=== PATIENT | male | born 1980 | race Caucasian/White ===

== ENCOUNTER 2023-01-03 10:13 | Outpatient (CLI) | payer OTHER | END 2023-01-03 10:14 | disposition home or self-care (01) | LOC: CSHCT 10:13 | PROVIDERS: ATTEND Surgery | DX: S12.9XXD Fracture of neck, unspecified, subsequent encounter (principal); Z98.1 Arthrodesis status; Z87.81 Personal history of (healed) traumatic fracture | CPT/HCPCS: 72125 ==